=== PATIENT | male | born 1940 | race Caucasian/White ===

== ENCOUNTER 2017-03-17 07:32 | Outpatient (CLI) | payer MEDICARE, OTHER ==
--- NOTE | ~2017-03-17 | HEMODYNAMI ---
PATIENT:EDIS RUDOLPH MEDICAL RECORD: [id number] : 38 LOCATION:[facility] ADMISSION DATE: 03/17/17 Generatedon:03/17/201710:09 Patient name: EDIS RUDOLPH Patient #: [id number] SSN: : 1940 Date of study: 03/17/2017 Page: Of Hemodynamic Procedure Report Patient Data Patient Demographics Procedure consent was obtained First Name: EDIS Gender: Male Last Name: RONNI : 1940 Middle Initial: RAY Age: 76 year(s) Patient #: [id number] Race: Unknown Additional ID: [id number] Contact details [address]: [address] [place] [address] State: [place] City: [place] Zip code: [address] Admission Admission Data Admission Date: 03/17/2017 Admission Time: 7:32 Procedure Procedure Types Cath Procedure Diagnostic Procedure [facility] w/Coronaries PCI Procedure Coronary Stent Initial Miscellaneous Procedures Moderate Sedation up to 15 minutes Procedure Description Procedure Date Procedure Date: 03/17/2017 Procedure Start Time: 9:46 Procedure End Time: 10:07 Procedure Staff Name Function David Mendosa MD Performing Physician David Owens RN Nurse Chucho Ruelas RT Monitor Teresa Patten RT Scrub Procedure Data Cath Procedure Fluoroscopy Diagnostic fluoroscopy Total fluoroscopy Time: 3.3 time: 3.3 min min Diagnostic fluoroscopy Total fluoroscopy dose: 409 dose: 409 mGy mGy Contrast Material Contrast Material Type Amount (ml) Isovue 300 64 Entry Location Entry Primary Successful Side Size Upsize Upsize Entry Closure Jaramillo ccessful Closure Location (Fr) 1 (Fr) 2 (Fr) Remarks Device Remarks Radial Right 6 Fr Mechanical artery Short Compression Femoral Right 6 Fr Exoseal artery Short Estimated blood loss: 10 ml Diagnostic catheters Device Type Used For End Catheter Placement Diagnostic Terumo 5Fr Procedure [place] 110cm catheter Diagnostic Infinity 5Fr Procedure 3DRC catheter Procedure Complications No complications Procedure Medications Medication Administration Route Dosage 0.9% NaCl I.V. 100 ml/hr Oxygen NC 2 l/min Heparin Flush Bag added to field 2 bags (1000units/500ml NS) Lidocaine 2% added to field 20 Radial Cocktail added to field 1 syringe (Verapomil 2mg/Nitro 400mcg/Heparin 1500units) Versed I.V. 1 mg Fentanyl I.V. 50 mcg Radial Cocktail I.A. 1 syringe (Verapomil 2mg/Nitro 400mcg/Heparin 1500units) Fentanyl I.V. 50 mcg Heparin Bolus I.V. 4000 units Hemodynamics Rest Heart Rate: 63 (bpm) Pressure Samples Time Site Value (mmHg) Purpose Heart Use Rate(bpm) 9:57 AO 119/68(90) Snapshot 73 Snapshots Pre Cath Intra NCS Post Cath Vital Signs Time Heart Resp SPO2 etCO2 NIBP (mmHg) Rhythm Pain Sedation Rate (ipm) (%) (mmHg) Status Level (bpm) 9:27:39 61 16 97 35.6 138/81(107) NSR 0 (11) 10(A) , No pain 9:32:22 60 18 98 34.1 127/75(104) NSR 0 (11) 10(A) , No pain 9:37:03 58 17 98 32.6 121/70(99) NSR 0 (11) 10(A) , No pain 9:41:41 59 17 97 34.9 116/74(90) NSR 0 (11) 10(A) , No pain 9:46:18 66 20 98 32.6 128/77(105) NSR 0 (11) 9(A) , No pain 9:50:54 80 23 95 28 118/78(91) NSR 0 (11) 10(A) , No pain 9:55:31 76 23 94 28.8 126/76(99) NSR 0 (11) 10(A) , No pain 10:00:09 72 21 95 32.6 126/78(95) NSR 0 (11) 10(A) , No pain 10:04:48 65 19 97 32.6 120/72(89) NSR 0 (11) 10(A) , No pain Medications Time Medication Route Dose Verified Delivered Reason Notes Effectiveness by by 9:26:09 0.9% NaCl I.V. 100 David David Per physician ml/hr Graciela Owens RN RN 9:26:22 Oxygen NC 2 l/min David David Per physician Graciela Owens RN RN 9:26:38 Heparin Flush added 2 bags Advid David used for Bag to Graciela Owens procedure (1000units/500ml field RN RN NS) 9:26:55 Lidocaine 2% added 20ml David David for local to vial Graciela Owens anesthetic field RN RN 9:27:15 Radial Cocktail added 1 David David for (Verapomil to syringe Graciela Owens vasodilation 2mg/Nitro field RN RN 400mcg/Heparin 1500units) 9:44:23 Versed I.V. 1 mg David David for sedation Graciela Owens RN RN 9:44:37 Fentanyl I.V. 50 mcg David David for sedation Graciela Owens RN RN 9:47:19 Radial Cocktail I.A. 1 David David for (Verapomil syringe Graciela Tauth MD vasodilation 2mg/Nitro RN 400mcg/Heparin 1500units) 9:52:18 Fentanyl I.V. 50 mcg David David for sedation Graciela Owens RN RN 9:58:04 Heparin Bolus I.V. 4000 David David for units Graciela Owens anticoagulation RN airframe design engineer Log Time Note 9:00:45 Chucho PANDEY(R) sent for patient. Start room use. 9:03:46 Time tracking: Regular hours 9:03:50 Plan of Care:Hemodynamics will remain stable., Cardiac rhythm will remain stable., Comfort level will be maintained., Respiratory function will remain adequate., Patient/ family verbilizes understanding of procedure., Procedure tolerated without complication., Recovers from procedure without complications.. 9:14:02 Patient received from Pre/Post Procedure Room to CCL 1 Alert and oriented. Tansferred to table in Supine position. 9:14:04 Warm blankets applied, and chente hugger turned on for patient comfort. 9:14:05 Correct patient and procedure confirmed by team. 9:14:06 Signed procedure consent form obtained from patient. 9:14:07 ECG and BP/O2 sat monitors applied to patient. 9:26:09 0.9% NaCl 100 ml/hr I.V. was administered by David Owens RN; Per physician; 9:26:22 Oxygen 2 l/min NC was administered by David Owens RN; Per physician; 9:26:38 Heparin Flush Bag (1000units/500ml NS) 2 bags added to field was administered by David Owens RN; used for procedure; 9::44 Vital chart was started 9::47 Baseline sample Acquired. 9::55 Lidocaine 2% 20ml vial added to field was administered by David Owens RN; for local anesthetic; 9::55 Rhythm: sinus rhythm 9:26:57 Full Disclosure recording started 9:27:06 H&P Date Dictated: 03/05/2017 Within 30 days and on chart., H&P Addendum completed by physician on day of procedure. (MUST COMPLETE FOR ALL OUTPATIENTS). 9:27:08 Pre-procedure instructions explained to patient. 9:27:09 Pre-op teaching completed and patient verbalized understanding. 9:27:14 Family in waiting room. 9:27:15 Radial Cocktail (Verapomil 2mg/Nitro 400mcg/Heparin 1500units) 1 syringe added to field was administered by David Owens RN; for vasodilation; 9:27:21 Patient NPO since Midnight. 9:27:23 Is the patient allergic to Iodine/contrast media? No. 9::55 Is patient on blood thinner?Yes 9:29:00 ACC The patient was administered the following blood thiners within the last 24 hours: ACCPlavix 9:29:09 Patient diabetic? No. 9:29:12 Previous problem with sedation/anesthesia? No ? 9:29:17 Snore? Yes 9:29:19 Sleep apnea? No 9:29:20 Deviated septum? No 9:29:21 Opens mouth fully? Yes 9:29:21 Sticks out tongue? Yes 9:29:23 Airway obstruction? No ? 9:29:43 Dentures? Yes TOP IN, BOTTOM OUT. 9:29:49 Pre procedure: right dorsailis pedis pulse 1+ Palpable, but thready & weak; easily obliterated 9:29:52 Modified Kody's test Ulnar < 7 seconds 9:29:55 Patient pain scale 0/10 ?. 9:29:59 IV patent on arrival in left forearm with 0.9% NaCl at [facility]. 9:30:01 Lab results completed and on chart. 9:30:04 Right Radial & Right Groin area was prepped with chlora-prep and draped in sterile fashion 9:30:06 Alarms reviewed by Raffi N. 9:30: Sharps counted by scrub and verified by RAnyaN. 9:30:07 Physician paged 9:36:40 Zero performed for pressure channel P1 9:43:53 --------ALL STOP TIME OUT------ 9:43:53 Final Timeout: patient, procedure, and site verified with staff and physician. All members of the team are in agreement. 9:43:55 Right Radial & Right Groin site verified by team. 9:43:58 Physical assessment completed. ASA score P 2 - A patient with mild systemic disease as per David Mendosa MD. 9:44:02 Sedation plan: IV Moderate Sedation Versed, Fentanyl 9:44:23 Versed 1 mg I.V. was administered by David Owens RN; for sedation; 9:44:37 Fentanyl 50 mcg I.V. was administered by David Owens RN; for sedation; 9:45:57 Use device set Radial Dx 9:45:58 Tegaderm 4 x 4 opened to sterile field. 9:45:59 Acist Manifold opened to sterile field. 9:46:00 Acist Hand Control opened to sterile field. 9:46:01 Acist Syringe opened to sterile field. 9:46:01 Medline Cath Pack opened to sterile field. 9:46:02 Bag Decanter opened to sterile field. 9:46:02 Terumo 6Fr Slender Glidesheath opened to sterile field. 9:46:02 St Yosi 260cm J .035 wire opened to sterile field. 9:46:03 MBrace Wrist Support opened to sterile field. 9:46:06 Procedure started. 9:46:11 Local anesthetic to right radial artery with Lidocaine 2% by David Mendosa MD.INITIAL ACCESS ONLY 9:47:08 A 6 Fr Short sheath was inserted into the Right Radial artery 9:47:19 Radial Cocktail (Verapomil 2mg/Nitro 400mcg/Heparin 1500units) 1 syringe I.A. was administered by David Mendosa MD; for vasodilation; 9:47:37 A Diagnostic Terumo 5Fr [place] 110cm catheter was advanced over the wire and used for Procedure. 9:48:53 LV angiography performed. 9:48:54 LV gram done using [place] 9:49:03 EF : 60 % 9:49:09 Injector settings: Ml/sec: 7, Volume: 15, 9:49:29 Catheter removed. 9:50:42 Unable to cannulate coronaries due to tortuous subclavian. Moving to femroal approach. 9:50:54 Local anesthetic to right femoral artery with Lidocaine 2% by aDvid Mendosa MD.ADDITIONAL ACCESS 9:51:30 Terumo 6Fr [place] Sheath opened to sterile field. 9:52:18 Fentanyl 50 mcg I.V. was administered by David Owens RN; for sedation; 9:53:02 A 6 Fr Short sheath was inserted into the Right Femoral artery 9:53:47 A Diagnostic Infinity 5Fr 3DRC catheter was advanced over the wire and used for Procedure. 9:54:27 RCA angiography performed. 9:54:34 Catheter removed. 9:54:36 Cordis 6FR XBLAD 3.5 guide catheter opened to sterile field. 9:54:56 6 Fr XBLAD 3.5 guide catheter was inserted over the wire 9:55:45 LCA angiography performed. 9:56:17 Study PCI Site: [place] mLAD has 80% stenosis. 9:56:20 ACC Pre-intervention DESMOND Flow is 3. 9:56:31 MuleSoft BasixCompak Inflation Kit opened to sterile field. 9:56:32 Galvan Whisper J 300cm 0.014 guide wire opened to sterile field. 9:56:57 Whisper wire advanced. 9:58:04 Heparin Bolus 4000 units I.V. was administered by David Owens RN; for anticoagulation; 9:58:28 Wire advanced across lesion. 9:59:42 Inflation Number: 1 A Winston OTW 2.5 x 15 stent was prepped and advanced across the Mid LAD. The stent was deployed at 17 ARNOLDO for 0:10 (min:sec). 9:59:48 ACC Post-intervention DESMOND Flow is 3. 9:59:49 Stent catheter was removed intact over wire. 9:59:49 Wire removed. 9:59:50 Guide catheter removed. 10:00:03 Cordis 6Fr Exoseal opened to sterile field. 10:00:04 Terumo TR Band Standard opened to sterile field. 10:00:23 Sheath removed intact; hemostasis achieved with Exoseal to the Right Femoral artery. 10:00:38 Sheath removed intact; hemostasis achieved with Mechanical Compression to the Right Radial artery. 10:00:43 TR band inflated with 12cc of air. 10:00:45 Procedure ended.(Physican Out) 10:01:03 Fluoroscopy time 03.30 minutes. 10:01:14 Fluoroscopy dose: 409 mGy 10:01:14 Flurop Dose total: 409 10:01:18 Contrast amount:Isovue 300 64ml. 10:01:19 Sharps counted by scrub and verified by R.N. 10:01:21 Insertion/operative site no bleeding no hematoma. 10:01:22 Post Procedure Pulses reassessed and unchanged 10:01:25 Post-procedure physical assessment completed. ASA score P 2 - A patient with mild systemic disease as per David Mendosa MD. 10:01:28 Post procedure rhythm: unchanged. 10:01:31 Estimated blood loss: 10 ml 10:01:33 Post procedure instruction explained to patient.Patient verbalizes understanding. 10:01:33 Patient needs reinforcement of post procedure teaching. 10:01:43 Procedure type changed to Cath procedure, Diagnostic procedure, LHC, LHC w/Coronaries, PCI procedure, Coronary Stent Initial, Miscellaneous Procedures, Moderate Sedation up to 15 minutes 10:01:45 Procedure and supply charges have been captured, reviewed, submitted and are correct. 10:01:47 Procedure Complication : No complications 10:06:54 Vital chart was stopped 10:06:55 See physician's report for complete and final results. 10:06:59 Report given to PCU. 10:07:14 Patient transfered to PCU with Bed. 10:07:17 Procedure ended. 10:07:17 Full Disclosure recording stopped 10:07:20 End room use (Document Last) Intervention Summary Intervention Notes Time ActionType Lesion and Equipment Action# Pressure Duration Attributes Used 9:59:42 Place stent Mid LAD Winston OTW 1 17 00:10 2.5 x 15 stent Device Usage Item Name Manufacture Quantity Catalog Hospital Part Current Minimal Lot# / Number Charge Number Stock Stock Serial# Code Tegaderm 4 3M 1 1626W 258294 102167 912782 5 x 4 Acist Acist 1 46152 697021 111828 646530 5 Manifold [employer] Inc Acist Hand Acist 1 85991 846307 863274 052899 5 Control Medical Systems Inc Acist Acist 1 47622 512319 237355 760079 20 Syringe Medical Systems Inc Medline Cardinal 1 [id number] 315927 53649 408865 5 Cath Pack Health Bag Microtek 1 2001S 220032 40826 606664 5 Decanter Medical Inc. Terumo 6Fr Terumo 1 [id number] 993054 697083 295578 [address] St Yosi 1 767912 521115 978597 579463 30 260cm J .035 wire MBrace Advanced 1 140-0250-00 458774 60631 216379 5 Wrist Vascular Support Dynamics Diagnostic Terumo 1 33-2030 605425 147435 217573 5 Terumo 5Fr [place] 110cm catheter Terumo 6Fr Terumo 1 [id number] 461966 022942 019266 40 [place] Sheath Diagnostic Cardinal 1 [id number] 341850 000741 334237 9 [employer] Health 5Fr 3DRC catheter Cordis 6FR Cardinal 1 [id number] 448572 500658 911419 10 XBLAD 3.5 Health guide catheter [facility] Merit 1 [id number] 985372 918352 586704 15 BasixCompak Medical Inflation Kit Galvan Galvan 1 [id number] 519883 900534 786085 5 Whisper J Vascular 300cm 0.014 guide wire [place] OTW Medtronic 1 [id number] 432788 67507 112257 5 [id number] 2.5 x 15 stent Cordis 6Fr Cardinal 1 EX600 595578 236096 711641 10 [employer] Terumo TR Terumo 1 [id number] 358215 858734 943273 40 Band Standard Signature Audit Gwinner Stage Time Signature Unsigned Intra-Procedure 03/17/2017 Chucho Ruelas 10:09:26 AM RT(R) Signatures Monitor : Chucho Ruelas RT Signature : Date : Time : [facility] [address] [place] [address]
--- NOTE | ~2017-03-17 | HEMODYNAMI ---
PATIENT:EDIS RUDOLPH MEDICAL RECORD: [id number] : 38 [id number] ADMISSION DATE: 03/17/17 Generatedon:03/18/20178:53 Patient name: EDIS RUDOLPH Patient #: [id number] SSN: [id number] : 1940 Date of study: 03/18/2017 Page: Of Hemodynamic Procedure Report Patient Data Patient Demographics Procedure consent was obtained First Name: EDIS Gender: Male Last Name: RONNI : 1940 Middle Initial: NICOL Age: 76 year(s) Patient #: [id number] Race: SSN: [id number] Additional ID: [id number] Contact details [address]: [address] [place] [address] State: [place] City: [place] Zip code: [address] Past Medical History Allergies Allergen Reaction Date Comments Reported Other allergy 03/18/2017 Statins, Hmg, Coa Reductase, Metoprolol Admission Admission Data Admission Date: 03/17/2017 Admission Time: 7:32 Arrival Date: 03/17/2017 Arrival Time: 7:32 Admit Source: Other Insurance Payor: Medicare Room #: D.2118 Lab Results Lab Result Date: 03/18/2017 Lab Result Time: 0:00 Biochemistry Name Units Result Min Max BUN mg/dl 12 --(-*--)-- 7 18 Creatinine mg/dl 0.7 --(*---)-- 0.6 1.3 CBC Name Units Result Min Max Hemoglobin g/dl 15.2 --(-*--)-- 13.5 17.5 Procedure Procedure Types Cath Procedure PCI Procedure Coronary Stent Initial Miscellaneous Procedures Moderate Sedation up to 30 minutes Procedure Description Procedure Date Procedure Date: 03/18/2017 Procedure Start Time: 8:39 Procedure End Time: 8:49 Procedure Staff Name Function David Mendosa MD Performing Physician Jaclyn Loera RT Scrub Prince Armando RN Nurse Marixa Sánchez RT Monitor Indication CAD Procedure Data Cath Procedure Fluoroscopy Diagnostic fluoroscopy Total fluoroscopy Time: 2.4 time: 2.4 min min Diagnostic fluoroscopy Total fluoroscopy dose: 189 dose: 189 mGy mGy Contrast Material Contrast Material Type Amount (ml) Isovue 300 31 Entry Location Entry Primary Successful Side Size Upsize Upsize Entry Closure Succes sful Closure Location (Fr) 1 (Fr) 2 (Fr) Remarks Device Remarks Femoral Left 6 Fr Exoseal artery Short Estimated blood loss: 5 ml Procedure Complications No complications Procedure Medications Medication Administration Route Dosage Oxygen NC 2 l/min Heparin Flush Bag added to field 2 bags (1000units/500ml NS) 0.9% NaCl I.V. 100 ml/hr Fentanyl I.V. 50 mcg Versed I.V. 1 mg Fentanyl I.V. 50 mcg Versed I.V. 1 mg Heparin Bolus I.V. 4000 units Hemodynamics Rest HGB: 15.2 (g/dl) Heart Rate: 75 (bpm) Snapshots Pre Cath Intra NCS Post Cath Vital Signs Time Heart Resp SPO2 etCO2 NIBP (mmHg) Rhythm Pain Sedation Rate (ipm) (%) (mmHg) Status Level (bpm) 8:23:57 77 20 100 24.1 153/79(115) NSR 0 (11) 10(A) , No pain 8:28:09 74 18 100 25.6 145/83(133) NSR 0 (11) 10(A) , No pain 8:33:12 73 20 100 28.6 140/88(121) NSR 0 (11) 10(A) , No pain 8:37:26 72 20 100 17.3 148/80(120) NSR 0 (11) 10(A) , No pain 8:41:38 66 16 96 30.2 128/74(104) NSR 0 (11) 9(A) , No pain 8:45:50 66 17 97 33.2 131/71(94) NSR 0 (11) 9(A) , No pain Medications Time Medication Route Dose Verified Delivered Reason Notes Effectiveness by by 8:29:53 Oxygen NC 2 David Morrison Per physician l/min Deondre Armando RN 8:30:03 Heparin Flush added 2 David Morrison used for Bag to bags Deondre Armando waiter (1000units/500ml field NS) 8:30:11 0.9% NaCl I.V. 100 David Morrison Per physician ml/hr Deondre Armando RN 8:37:50 Fentanyl I.V. 50 David Morrison for sedation mcg Deondre Armando RN 8:37:56 Versed I.V. 1 mg David Ashy for sedation Deondre Armando RN 8:40:00 Fentanyl I.V. 50 David Morrison for sedation mcg Deondre Armando RN 8:40:05 Versed I.V. 1 mg David Morrison for sedation Deondre Armando RN 8:40:14 Heparin Bolus I.V. 4000 David Morrison for units Deondre Armando RN anticoagulation Procedure Log Time Note 8:00:07 Prince Armando RN sent for patient. Start room use. 8:06:03 Informed consent obtained and on chart 8:06:31 Diagnostic Cath Status : Elective 8:07:01 Indication : CAD 8:07:08 Time tracking: Regular hours 8:07:13 Plan of Care:Hemodynamics will remain stable., Cardiac rhythm will remain stable., Comfort level will be maintained., Respiratory function will remain adequate., Patient/ family verbilizes understanding of procedure., Procedure tolerated without complication., Recovers from procedure without complications.. 8:07:58 Procedure type changed to Cath procedure, PCI procedure, Coronary Stent Initial, Miscellaneous Procedures, Moderate Sedation up to 30 minutes 8:08:37 Lab Result : BUN 12 mg/dl 8:08:37 Lab Result : Hemoglobin 15.2 g/dl 8:08:37 Lab Result : Creatinine 0.7 mg/dl 8:08:53 Admit Source: Other 8:08:56 Arrival Date: 03/17/2017 7:32:00 AM 8:09:11 Insurance Payor : Medicare 8:12:38 Patient received from Med II to [facility] 2 Alert and oriented. Tansferred to table in Supine position. 8:12:39 Warm blankets applied, and chente hugger turned on for patient comfort. 8:12:39 Correct patient and procedure confirmed by team. 8:12:40 ECG and BP/O2 sat monitors applied to patient. 8:22:37 Vital chart was started 8:22:39 Baseline sample Acquired. 8:22:43 Rhythm: sinus rhythm 8:22:45 Full Disclosure recording started 8:22:52 H&P Date Dictated: 03/18/2017 Within 30 days and on chart.. 8:22:53 Pre-procedure instructions explained to patient. 8:22:53 Pre-op teaching completed and patient verbalized understanding. 8:22:55 Family in waiting room. 8:22:56 Patient NPO since Midnight. 8:26:32 Patient allergic to Other allergyStatins, Hmg, Coa Reductase, Metoprolol 8:26:34 Is the patient allergic to Iodine/contrast media? No. 8:26:35 Was the patient premedicated? No 8:27:07 Is patient on blood thinner?Yes 8:27:10 ACC The patient was administered the following blood thiners within the last 24 hours: ACCPlavix 8:27:12 Patient diabetic? No. 8:27:15 Previous problem with sedation/anesthesia? No ? 8:27:17 Snore? Yes 8:27:18 Sleep apnea? No 8:27:19 Deviated septum? No 8:27:21 Opens mouth fully? Yes 8:27:23 Sticks out tongue? Yes 8:27:26 Airway obstruction? No ? 8:27:40 Dentures? Yes bottom in tight 8:27:45 Pre procedure: right dorsailis pedis pulse 1+ Palpable, but thready & weak; easily obliterated 8:27:47 Pre procedure: left dorsailis pedis pulse 1+ Palpable, but thready & weak; easily obliterated 8:27:53 Patient pain scale 0/10 ?. 8:28:04 IV patent on arrival in left wrist with 0.9% NaCl at KVO. 8:28:08 Lab results completed and on chart. 8:28:13 Left groin area was prepped with chlora-prep and draped in sterile fashion 8:28:14 Alarms reviewed by R. N. 8:28:14 Sharps counted by scrub and verified by R.N. 8:29:53 Oxygen 2 l/min NC was administered by Prince Armando RN; Per physician; 8:30:03 Heparin Flush Bag (1000units/500ml NS) 2 bags added to field was administered by Prince Armando RN; used for procedure; 8:30:11 0.9% NaCl 100 ml/hr I.V. was administered by Prince Armando RN; Per physician; 8:31:54 Physician arrived 8:31:54 --------ALL STOP TIME OUT------ 8:31:55 Final Timeout: patient, procedure, and site verified with staff and physician. All members of the team are in agreement. 8:31:57 Left groin site verified by team. 8:32:00 Physical assessment completed. ASA score P 2 - A patient with mild systemic disease as per David Mendosa MD. 8:32:04 Sedation plan: IV Moderate Sedation Versed, Fentanyl 8:32:12 Use device set Femoral PCI 8:32:13 Acist Syringe opened to sterile field. 8:32:13 Acist Hand Control opened to sterile field. 8:32:14 Bag Decanter opened to sterile field. 8:32:14 Medline Cath Pack opened to sterile field. 8:32:15 Terumo 6Fr [place] Sheath opened to sterile field. 8:32:15 St Yosi 260cm J .035 wire opened to sterile field. 8:32:16 Merit BasixCompak Inflation Kit opened to sterile field. 8:32:16 Acist Manifold opened to sterile field. 8:32:17 Tegaderm 4 x 4 opened to sterile field. 8:37:16 Procedure started. 8:37:50 Fentanyl 50 mcg I.V. was administered by Prince Armando RN; for sedation; 8:37:56 Versed 1 mg I.V. was administered by Prince Armando RN; for sedation; 8:39:07 Local anesthetic to left femerol artery with Lidocaine 2% by David Mendosa MD.INITIAL ACCESS ONLY 8:39:14 A 6 Fr Short sheath was inserted into the Left Femoral artery 8:39:47 Medtronic Launcher 6Fr HS I SH guide catheter opened to sterile field. 8:39:47 Galvan Whisper J 300cm 0.014 guide wire opened to sterile field. 8:40:00 Fentanyl 50 mcg I.V. was administered by Prince Armando RN; for sedation; 8:40:05 Versed 1 mg I.V. was administered by Prince Armando RN; for sedation; 8:40:14 Heparin Bolus 4000 units I.V. was administered by Prince Armando RN; for anticoagulation; 8:40:17 6 Fr hs 1 sh guide catheter was inserted over the wire 8:40:22 whisper wire advanced. 8:40:31 Wire advanced across lesion. 8:42:11 The Abell OTW 3.0 x 15 stent was advanced then removed because of failure to cross lesion 8:43:56 Inflation number: 1 A Euphora 3.0 x 10 balloon was prepped and advanced across the Mid RCA, then inflated to 15 ARNOLDO for 0:10 (min:sec). 8:44:09 Balloon removed over the wire. 8:45:30 Inflation Number: 2 A Abell OTW 3.0 x 15 stent was prepped and advanced across the Mid RCA. The stent was deployed at 13 ARNOLDO for 0:10 (min:sec). 8:46:01 Stent catheter was removed intact over wire. 8:46:02 Wire removed. 8:46:02 Guide catheter removed. 8:46:09 Cordis 6Fr Exoseal opened to sterile field. 8:46:18 Sheath removed intact; hemostasis achieved with Exoseal to the Left Femoral artery. 8:46:20 Procedure ended.(Physican Out) 8:47:57 Fluoroscopy time 02.40 minutes. 8:48:01 Fluoroscopy dose: 189 mGy 8:48:01 Flurop Dose total: 189 8:48:05 Contrast amount:Isovue 300 31ml. 8:48:06 Sharps counted by scrub and verified by R.N. 8:48:09 Insertion/operative site no bleeding no hematoma. 8:48:11 Post-op/insertion site Right Femoral artery dressed using a 4 x 4 and Tegaderm. 8:48:14 Post right femoral artery:stable 8:48:16 Post Procedure Pulses reassessed and unchanged 8:48:18 Post procedure rhythm: unchanged. 8:48:21 Estimated blood loss: 5 ml 8:48:53 Post procedure instruction explained to patient.Patient verbalizes understanding. 8:48:53 Patient needs reinforcement of post procedure teaching. 8:48:54 Procedure and supply charges have been captured, reviewed, submitted and are correct. 8:48:59 Procedure Complication : No complications 8:49:03 Vital chart was stopped 8:49:04 See physician's report for complete and final results. 8:49:13 Report given to [facility]. 8:49:15 Patient transfered to [facility] with Stretcher. 8:49:17 Procedure ended. 8:49:17 Full Disclosure recording stopped 8:49:24 ACC-PCI Only Patient was given prescriptions, or instructed by David Mendosa MD to start/continue the following medications upon discharge: Plavix 8:49:25 End room use (Document Last) Intervention Summary Intervention Notes Time ActionType Lesion and Equipment Action# Pressure Duration Attributes Used 8:42:11 Discard Abell OTW Stent 3.0 x 15 stent 8:43:56 Inflate Mid RCA Euphora 1 15 00:10 balloon 3.0 x 10 balloon 8:45:30 Place stent Mid RCA Abell OTW 2 13 00:10 3.0 x 15 stent Device Usage Item Name Manufacture Quantity Catalog Hospital Part Current Minimal Lot# / Number Charge Number Stock Stock Serial# Code Acist Acist 1 60541 951781 918330 566386 20 Syringe Advanced[employer]Tec Systems Inc Acist Hand Acist 1 47670 727918 064324 682669 5 GPal Systems Inc Bag Microtek 1 2002S 928470 44440 320683 5 Taodyne Inc. Medline Cardinal 1 [id number] 253949 01417 090449 5 800APP Terumo 6Fr Terumo 1 [id number] 597818 494586 574885 [address] Y[address] St Yosi 1 471592 121111 171258 725095 30 260cm J .035 wire Merit Merit 1 [id number] 898060 584329 520026 15 Exosect Medical Inflation Kit Acist Acist 1 11603 208311 440805 057574 5 Layer 4 Communications Medical Systems Inc Tegaderm 4 3M 1 1626W 990656 766491 822098 5 x 4 Medtronic Medtronic 1 [id number] 351700 22888 122469 1 Launcher 6Fr HS I SH guide catheter Galvan Galvan 1 [id number] 289237 599965 139014 5 Whisper J Vascular 300cm 0.014 guide wire Abell OTW Medtronic 1 [id number] 468707 554557 312545 5 [id number] 3.0 x 15 stent Euphora 3.0 Medtronic 1 [id number] 050447 268568 310530 5 [id number] x 10 balloon Cordis 6Fr Cardinal 1 EX600 473124 342320 441111 10 [facility] Signature Audit Orange Stage Time Signature Unsigned Intra-Procedure 03/18/2017 Jaclny Evaristo 8:53:10 AM RT(R) Signatures Monitor : Marixa Sánchez Signature : RT Date : Time : [address] [place] [address]
[2017-03-17] MEDS ORDERED: COZAAR25 MG PO (07:48)
[2017-03-17] MEDS ORDERED: NIFEDIPINE ER60 MG PO (07:48)
[2017-03-17] MEDS ORDERED: PLAVIX75 MG PO (07:48)
[2017-03-17] MEDS ORDERED: CELEBREX200 MG PO (07:49)
[2017-03-17] MEDS ORDERED: CRESTOR5 MG PO (07:49)
[2017-03-17] MEDS ORDERED: OSTEO BI-FLEX1 EAC1 PO (07:50)
[2017-03-17] MEDS ORDERED: XANAX1 MG PO (07:50)
[2017-03-17] MEDS ORDERED: BAYER CHEWABLE81 MG PO (07:50)
[2017-03-17] MEDS ORDERED: CO Q-10200 MG PO (07:50)
[2017-03-17] MEDS ORDERED: VITAMIN B-121000 MCG PO (07:51)
[2017-03-17 08:03] VITALS: BP 172/78; BMI 27.4
[2017-03-17 08:23] LABS: BASOPHILS 0.3 % (0-2); HEMATOCRIT 43.9 % (42.0-54.0); HEMOGLOBIN 15.2 g/dL (13.5-17.5); IMMATURE GRANULOCYTES 0.4 % (0-5); LYMPHOCYTES 55.1 % (15-50); MCH 32.9 pg (26.0-34.0); MCHC 34.6 g/dL (31.0-37.0); MEAN PLATELET VOLUME 9.3 fL (7.4-10.4); NEUTROPHILS 36.2 % (40-80); PLATELET COUNT 238 10x3/uL (130-400); RBC 4.62 10x6/uL (4.20-6.10); WBC 9.9 10x3/uL (4.8-10.8)
[2017-03-17 08:24] LABS: CALC OSMOLALITY 269 mosm/kg (275-300); CALCIUM 9.4 mg/dL (8.5-10.1); CARBON DIOXIDE 27.9 mmol/L (21.0-32.0); CHLORIDE - SERUM 99 mmol/L (98-107); CREATININE - SERUM 0.7 mg/dL (0.6-1.3); GLUCOSE 97 mg/dL (74-106); SODIUM 135 mmol/L (136-145); UREA NITROGEN 12 mg/dL (7-18); eGFR NON AFRICAN AMERICAN > 90 mL/min (90-120)
--- NOTE | 2017-03-17 10:15 | NUR ---
RECIEVED FROM PATROL DEPUTY SHERIFF. V/S STABLE . TR BAND TO RIGHT ARM WITHOUT BLEEDING OR SWELLING. RIGHT GROIN SOFT WITH DRSG DRY AND INTACT.TELEMERTY SHOWS [id number]. WILL MONITOR
[2017-03-17 12:17] VITALS: BP 150/90
[2017-03-17 12:33] VITALS: BP 154/84; BMI 27.3
--- NOTE | 2017-03-17 14:38 | NUR ---
LYING QUIETLY WITH. TR BAND STILL ON. TOOK HALF THE AIR OUT AND IT STARTED BLEEDING. AIR REPLACED. RIGHT GROIN DRY AND INTACT. TELEMERTY SHOWS SR.
--- NOTE | 2017-03-17 17:40 | NUR ---
TR BAND OFF, NO BLEEING OR SWELLING NOTED. UP TO BATHROOM. GAIT STEADY. WILL MONITOR
--- NOTE | 2017-03-17 19:32 | NUR ---
ASSESSMENT COMPLETE, A&O. RESPERATIONS EVEN, PT DENIES PAIN OR NEEDS AT THIS TIME, BED LOW, CL IN REACH.
[2017-03-17 20:12] VITALS: BP 121/62
--- NOTE | 2017-03-17 22:48 | NUR ---
PT LYING IN BED ON RIGHT SIDE, RESTING COMFORTABLY, EYES CLOSED, RESPIRATIONS EVEN AND UNLABORED. PT IS EASILY ROUSABLE TO VERBAL STIMULI, DENIED ANY NEEDS WHEN ASKED. CONTINUE TO MONITOR CLOSELY.
[2017-03-18 00:36] VITALS: BP 127/72
--- NOTE | 2017-03-18 03:14 | NUR ---
RESTING WITH EYES CLOSED, RESPERATIONS EVEN, NO S/S DISTRESS NOTED.
[2017-03-18 04:20] VITALS: BP 141/79
--- NOTE | 2017-03-18 07:13 | NUR ---
ASSESSMENT DONE. DENIES NEEDS.
--- NOTE | 2017-03-18 08:08 | NUR ---
TO CONCRETE PUMP OPERATOR HELPER PER BED
[2017-03-18 08:11] VITALS: BP 144/89
--- NOTE | 2017-03-18 08:52 | OP ---
PATIENT NAME: EDIS RUDOLPH MEDICAL RECORD: [id number] :38 LOCATION:D.M2 D.2118 ADMISSION DATE: SURGEON: CHARLIE CORNELIUS MD DATE OF OPERATION: 03/17/2017 PROCEDURES: 1. PTCA stent to LAD. 2. Left heart catheterization. 3. Selective coronary angiography. 4. Left ventriculogram. INDICATION: Chest pain compatible with angina. PROCEDURE IN DETAIL: After informed consent was obtained and after detailed explanation of risks, benefits as well as alternative therapies, the patient elected to proceed with angiogram and angioplasty. The right femoral area was prepped and draped in normal sterile fashion. The right femoral artery was cannulated via modified Seldinger technique with placement of 6-[place] sheath. All catheters exchanged through this sheath. FINDINGS: Left ventriculogram was performed in standard 30-degree [place] view, reveals good cardiac wall motion throughout all segments. Overall ejection fraction estimated 60%. SELECTIVE CORONARY ANGIOGRAPHY: 1. Left main showed no significant angiographic disease. 2. Left anterior descending has 80% stenosis in the mid vessel. 3. Left circumflex shows moderate irregularities, but no flow-limiting stenosis. 4. Right coronary has 90% stenosis in the mid vessel. PTCA STENT OF THE LAD: The stent used was a 2.5 x 15 mm [place]. Result was 0% residual stenosis. OVERALL IMPRESSION: Successful percutaneous transluminal coronary angioplasty stent of the left anterior descending going from 80% initial stenosis to 0% residual. PLAN: PTCA stent of the RCA in the near future. TRANSINT:[id number] Voice Confirmation ID: [id number] DOCUMENT ID: [id number] CHARLIE CORNELIUS MD at 0852 CC: [id number] DICTATION DATE: 03/17/17 1004 BUTADIENE CONVERTOR OPERATOR: 03/17/17 1039 [address] [place] [address]
--- NOTE | 2017-03-18 09:15 | NUR ---
RETURN FROM NEEDLE MOLDER PER BED. LT NOBLE GARDNER C/D/I. PULSE PALP
--- NOTE | 2017-03-18 09:51 | NUR ---
BACK FROM [employer] ACCESS DEVELOPER. VS WNL. AT BS. WILL CONT. PLAN OF CARE.
[2017-03-18 10:37] VITALS: BMI 27.2
[2017-03-18 12:14] VITALS: BP 131/75
--- NOTE | 2017-03-18 13:25 | NUR ---
DC AND RX GIVEN TO PT
--- NOTE | 2017-03-18 13:50 | NUR ---
DC HOME PER PERSONAL CAR
--- NOTE | 2017-03-27 16:56 | DS ---
PATIENT:EDIS ELLIS :38 MEDICAL RECORD: [id number] DISCHARGE SUMMARY ADMISSION DATE: 03/17/17 DISCHARGE DATE: 03/18/17 DISCHARGE DIAGNOSES: 1. Angina. 2. Coronary artery disease. 3. PTCA and stent of LAD and RCA this admission. HOSPITAL COURSE: Mr. Ellis presents with anginal symptomatology, found to have 2-vessel coronary artery disease of the LAD and RCA. Underwent successful PTCA and stent of above territories. Had an uneventful postop course. Discharged home with the addition of aspirin and Plavix to his medical regimen. He will follow up with [facility] in 1 month. TRANSINT:[id number] Voice Confirmation ID: [id number] DOCUMENT ID: [id number] CHARLIE CORNELIUS MD at 1656 CC: [id number] DICTATION DATE: 03/18/17 0851 WATCH LEADER: 03/18/17 1319 DEP CLI 03/18/17 [id number] [place] [address]
--- NOTE | 2017-03-27 16:56 | OP ---
PATIENT NAME: EDIS RUDOLPH MEDICAL RECORD: [id number] :38 LOCATION:D.CAT ADMISSION DATE: SURGEON: CHARLIE CORNELIUS MD DATE OF OPERATION: 03/18/2017 PROCEDURES: 1. PTCA stent to RCA. 2. Selective coronary angiography. INDICATION: Angina and coronary artery disease. PROCEDURE IN DETAIL: After informed consent was obtained and after a detailed explanation of the risks, benefits as well as alternative therapies, the patient elected to proceed with angiogram and angioplasty. The left femoral area was prepped and draped in normal sterile fashion. Left femoral artery was cannulated via modified Seldinger technique with placement of 6-[place]altese sheath. All catheters exchanged through this sheath. FINDINGS: The right coronary has a 90% stenosis in the mid vessel. This was addressed with a 3.0 x 15 mm [place]. Result was 0% residual stenosis. OVERALL IMPRESSION: Successful percutaneous transluminal coronary angioplasty stent of the right coronary artery going from 90% initial stenosis to 0% residual. TRANSINT:[id number] Voice Confirmation ID: [id number] DOCUMENT ID: [id number] CHARLIE CORNELIUS MD at 1656 CC: [id number] DICTATION DATE: 03/18/17 0852 INTEGRATION PROJECT MANAGER: 03/18/17 1123 [facility] CLI 03/18/17 [id number] [place] [address]
== END 2017-03-18 13:50 | disposition home or self-care (01) ==
LOC: D.CATH 07:32 → D.M2 07:32 → D.CATH 10:00
PROVIDERS: Internal Medicine Interventional Cardiology
DX: I25.119 Atherosclerotic heart disease of native coronary artery with unspecified angina pectoris (principal); Z01.812 Encounter for preprocedural laboratory examination; I10 Essential (primary) hypertension; E78.5 Hyperlipidemia, unspecified; Z87.891 Personal history of nicotine dependence
CPT/HCPCS: 93458; C9600 ×2